=== PATIENT | male | born 1950 | race Caucasian/White ===

== ENCOUNTER 2020-10-12 08:32 | Outpatient (CLI) | payer MEDICARE, OTHER ==
--- NOTE | 2020-10-12 08:53 | RAD ---
Chest 2 views HISTORY: Dyspnea. FINDINGS: No comparison. Cardiac silhouette and pulmonary vasculature are unremarkable. Mediastinum i s midline with calcification and a tortuous aorta. Lungs are well-inflated. Mild widespread reticular prominence, predominantly peripheral. Possibly sup erimposed ill-defined peripheral groundglass opacity projecting over the right upper lobe and left lung base. No pleural fluid or pneumothorax evident. IMPRESSION : In addition to chronic-type findings as hyperinflation and peripheral interstitial thickening/scarrin g, there are possible superimposed groundglass infiltrates. Correlate for an acute process such as viral pneumonitis.
== END 2020-10-12 08:33 | disposition home or self-care (01) ==
LOC: BICRAD 08:32
PROVIDERS: ATTEND Internal Medicine Critical Care Medicine
DX: R06.00 Dyspnea, unspecified (principal); R91.8 Other nonspecific abnormal finding of lung field
CPT/HCPCS: 71046

== ENCOUNTER 2020-10-13 07:37 | Outpatient (CLI) | payer MEDICARE, OTHER ==
[2020-10-13] MEDS ORDERED: Lidocaine 1% PF 10 ML AMP ONE (08:00)
[2020-10-13] MEDS ORDERED: Iopamidol 300 61% 50 ML VIAL FS ONE (08:00)
[2020-10-13] MEDS ORDERED: EPINEPHrine 1 MG/ML AMP ONE (08:00)
--- NOTE | 2020-10-13 09:46 | CT ---
EXAM: CT Upper Ext Lt W Con DATE: 10/13/2020 9:10 AM INDICATION: History of shoulder trauma and acromial fracture with acute left shoulder pain COMPARISON: Left shoulder arthrogram supervisor landscape radiograph dated October 13, 2020 FINDING: There is an obliquely oriented ununited fracture involving the base of the left acromial pr ocess. There is post procedural change of a prior distal clavicle excision. There is a small focus of heterotopic ossification overlying the distal clavicle measuring 1.2 cm. 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 No full-thickness rotator cuff tear is demonstrated. The biceps anchor complex appears intact. The biceps tendon is intact. There is a linear, vertically oriented po sterior rim fracture of the glenoid. There is suspicion for a partial-thickness tear involving the posterior superior glenoid labrum on image 27 of series 3. No full-thickness defect is evident involv ing the glenohumeral joint. There is peripheral interstitial opacities seen within both lungs with a few scattered areas of bronchiectasis involving the left upper lobe. No enlarged lymph nodes are ev ident. IMPRESSION: 1. Obliquely oriented ununited fracture involving the base of the left acromial process. 2. Incompletely healed vertically oriented posterior rim fracture of the glenoid. 3. Findings suspicious for partial thickness tear involving the posterior superior glenoid labrum. 4. No definite full-thickness rotator cuff tear demonstrated. 5. Postprocedural change of a prior distal clavicle excision with small focus of heterotopic ossifica tion seen slightly cephalad to the distal clavicle. Moderate left sternoclavicular osteoarthrosis. 6. Peripheral inter and intralobular septal thickening with scattered areas of bronchiectasis involvi ng the anterior left upper lobe can be seen with interstitial lung disease. Recommend correlation patient's clinical history.
--- NOTE | 2020-10-13 09:51 | RAD ---
PROCEDURE: Fluoroscopic left shoulder arthrogram INDICATION: Left shoulder pain COMPARISON: None TECHNIQUE: Informed consent was obtained. Preprocedure product safety coordinator images were obtained of the left shoulde r. The patient was placed supine on the fluoroscopic table. A timeout was performed. Site overlying the left shoulder was prepped and draped in the usual sterile fashion. Buffered 1% lidocaine was admi nistered into the overlying subcutaneous tissues. Under fluoroscopic guidance, a 22-gauge spinal needle was guided down into the left glenohumeral joint. Confirmation of needle localization was conf irmed by injecting 1 cc of the buffered 1% lidocaine. Following this 8 cc of the dilute Isovue solution CT Mix: 30 mL total volume consisting of 20 mL normal saline, 5 mL Isovue 300, 5 mL 1% Lido vinita, 0.1 mL Epi 1 mg/ml) was injected. Contrast was visualized within the left glenohumeral joint with fluoroscopy. The needle was removed. The injection site was then cleansed and bandage. The patie nt tolerated the injection without difficulty. Fluoroscopic time: 0.8minutes Fluoroscopic dose: 78.7mcg/sq m FINDINGS: There is an ununited fracture involving the acromial process. There is postsurgical change of a left distal clavicle excision. Visualized left lung is clear. IMPRESSION: Successful left shoulder arthrogram. The patient is to have a follow-up CTarthrogram of t he leftshoulder. Please see this report for further details.
== END 2020-10-13 07:38 | disposition home or self-care (01) ==
LOC: RAD 07:37
PROVIDERS: ATTEND Orthopaedic Surgery
DX: M25.512 Pain in left shoulder (principal); S42.122D Displaced fracture of acromial process, left shoulder, subsequent encounter for fracture with routine healing; M19.012 Primary osteoarthritis, left shoulder; J47.9 Bronchiectasis, uncomplicated; J84.9 Interstitial pulmonary disease, unspecified; Z98.890 Other specified postprocedural states
CPT/HCPCS: 23350; J0171; J2001; Q9967

== ENCOUNTER 2022-05-22 15:02 | Inpatient (IN) | payer MEDICARE, OTHER ==
[2022-05-22] MEDS ORDERED: Lidocaine 1% PF 5 ML VIAL ONE (16:00)
[2022-05-22] MEDS ORDERED: Midazolam HCl 2 mg/2 ml Vial ONE (16:13)
[2022-05-22] MEDS ORDERED: fentaNYL Citrate/PF 100 MCG/2 ML SYRINGE ONE (16:13)
[2022-05-22] MEDS ORDERED: Ketamine 50 MG/ML (10ML VIAL) ONE (16:13)
[2022-05-22] MEDS ORDERED: Bupivacaine/Epinephrine 0.25% 30 ML VIAL ONE (16:21)
[2022-05-22] MEDS ORDERED: PROPOFOL 200 MG/20 ML VIAL ONE (16:43)
[2022-05-22] MEDS ORDERED: Ondansetron ODT 4 MG TAB PO PRN (17:01)
[2022-05-22] MEDS ORDERED: HYDROcodone/Acetaminophen 5/325 mg Tablet PO PRN ×2 (17:01)
[2022-05-22] MEDS ORDERED: Morphine 2 MG/ML VIAL SLOW IVP PRN (17:03)
[2022-05-22] MEDS ORDERED: Ondansetron HCl/PF 4 MG/2 ML Vial IVP PRN (17:10)
[2022-05-22] MEDS ORDERED: Meperidine HCl/PF 25 MG/ML VIAL SLOW IVP PRN (17:10)
[2022-05-22] MEDS ORDERED: Promethazine HCl 25 MG/ML VIAL IM PRN (17:10)
[2022-05-22] MEDS ORDERED: Promethazine HCl 25 MG/ML VIAL IVPB PRN (17:10)
[2022-05-22] MEDS ORDERED: HYDROmorphone 2 MG/ML VIAL SLOW IVP PRN (17:10)
[2022-05-22] MEDS ORDERED: Fentanyl 100 MCG/2 ML VIAL SLOW IVP PRN ×2 (17:33)
[2022-05-22] MEDS: Mometasone 200 MCG/Formoterol 5 MCG 120 PUFF INHALER INH SCH (19:39)
[2022-05-22] MEDS ORDERED: Melatonin 3 MG TAB PO SCH (23:15)
[2022-05-23 04:38] LABS: #Eosinphils 0.2 thou/uL (0.0-0.7); #Lymphocytes 1.3 thou/uL (1.20-3.40); #Monocytes 1.3 thou/uL (0.11-0.59); #Neutrophils 6.5 thou/uL (1.40-6.50); %Basophils 0.4 % (0.0-1.0); %Eosinophils 2.1 % (0.0-10.0); %Lymphocytes 13.5 % (21.0-51.0); %Monocytes 13.6 % (0.0-10.0); %Neutrophils 70.3 % (42.0-75.0); Hemoglobin 11.3 g/dL (14.0-18.0); Mean Corpuscular HGB CONC 33.2 g/dL (32.0-36.0); Mean Corpuscular Hemoglobin 31.7 pg (27.0-31.0); Mean Corpuscular Volume 95.5 fL (78.0-98.0); Mean Platelet Volume 5.8 fL (7.4-10.4); Platelet Count 263 thou/uL (130-400); RBC Distribution Width 11.4 % (11.5-14.5); Red Blood Cell (RBC) Count 3.55 mill/uL (4.70-6.10); White Blood Cell (WBC) Count 9.3 thou/uL (4.8-10.8)
[2022-05-23 04:55] LABS: Anion Gap 15 mmol/L (10-20); BUN (Urea Nitrogen) 16 mg/dL (8.4-25.7); Calc. Creatinine Clearance 118 mL/min (70-130); Carbon Dioxide 22 mmol/L (23-31); Chloride 104 mmol/L (98-107); Estimated GFR 94; Glucose 102 mg/dL (83-110); Potassium 4.4 mmol/L (3.5-5.1); Sodium 137 mmol/L (136-145)
[2022-05-23] MEDS: Mometasone 200 MCG/Formoterol 5 MCG 120 PUFF INHALER INH SCH ×2 (07:33→18:28)
[2022-05-23] MEDS: Amlodipine 5 MG TAB PO SCH (08:58)
[2022-05-23] MEDS ORDERED: Enoxaparin Sodium 40 MG/0.4 ML SYRINGE SC SCH (09:00)
[2022-05-23] MEDS ORDERED: Sodium Bicarbonate 2.5 MEQ/5 ML VIAL ONE (13:00)
[2022-05-23] MEDS: cefTRIAXone\\ROCEPHIN 2 GM in Sodium Chloride 0.9% 100 ML IVPB SCH (14:56)
[2022-05-23] MEDS ORDERED: Mometasone 100 MCG/Formoterol 5 MCG 120 PUFF INHALER INH SCH (18:30)
[2022-05-23] MEDS: Melatonin 3 MG TAB PO SCH (21:59)
[2022-05-24] MEDS: Mometasone 200 MCG/Formoterol 5 MCG 120 PUFF INHALER INH SCH ×2 (07:23→18:57)
[2022-05-24] MEDS: Amlodipine 5 MG TAB PO SCH (09:20)
[2022-05-24] MEDS: Atorvastatin Calcium 20 MG TAB PO SCH (09:20)
[2022-05-24] MEDS: Allopurinol 100 MG TAB PO SCH (09:20)
[2022-05-24] MEDS: predniSONE 20 MG TAB PO SCH (09:20)
[2022-05-24] MEDS: Multivit, Therapeutic 1 TAB PO SCH (09:20)
[2022-05-24] MEDS: Montelukast Sodium 10 mg Tablet PO SCH (09:20)
[2022-05-24] MEDS: cefTRIAXone\\ROCEPHIN 2 GM in Sodium Chloride 0.9% 100 ML IVPB SCH (14:58)
[2022-05-24] MEDS ORDERED: Loratadine 10 MG TAB PO PRN (15:00)
[2022-05-24] MEDS: Melatonin 3 MG TAB PO SCH (21:33)
[2022-05-25] MEDS: Mometasone 200 MCG/Formoterol 5 MCG 120 PUFF INHALER INH SCH ×2 (07:25→18:53)
[2022-05-25] MEDS: Amlodipine 5 MG TAB PO SCH (09:33)
[2022-05-25] MEDS: Allopurinol 100 MG TAB PO SCH (09:34)
[2022-05-25] MEDS: Montelukast Sodium 10 mg Tablet PO SCH (09:34)
[2022-05-25] MEDS: Atorvastatin Calcium 20 MG TAB PO SCH (09:34)
[2022-05-25] MEDS: predniSONE 20 MG TAB PO SCH (09:34)
[2022-05-25] MEDS: Multivit, Therapeutic 1 TAB PO SCH (09:34)
[2022-05-25] MEDS ORDERED: Polyethylene Glycol 3350 17 GM Packet PO SCH (13:30)
[2022-05-25] MEDS: cefTRIAXone\\ROCEPHIN 2 GM in Sodium Chloride 0.9% 100 ML IVPB SCH (14:33)
[2022-05-25] MEDS: Melatonin 3 MG TAB PO SCH (21:01)
[2022-05-26] MEDS: Mometasone 200 MCG/Formoterol 5 MCG 120 PUFF INHALER INH SCH ×2 (07:44→19:12)
[2022-05-26] MEDS ORDERED: Fentanyl 100 MCG/2 ML VIAL ONE (08:28)
[2022-05-26] MEDS ORDERED: Sodium Bicarbonate 2.5 MEQ/5 ML VIAL ONE (08:28)
[2022-05-26] MEDS: Amlodipine 5 MG TAB PO SCH (10:34)
[2022-05-26] MEDS: Atorvastatin Calcium 20 MG TAB PO SCH (10:34)
[2022-05-26] MEDS: predniSONE 20 MG TAB PO SCH (10:34)
[2022-05-26] MEDS: Allopurinol 100 MG TAB PO SCH (10:34)
[2022-05-26] MEDS: Montelukast Sodium 10 mg Tablet PO SCH (10:34)
[2022-05-26] MEDS: Multivit, Therapeutic 1 TAB PO SCH (10:35)
[2022-05-26] MEDS: Polyethylene Glycol 3350 17 GM Packet PO SCH (11:21)
[2022-05-26] MEDS: cefTRIAXone\\ROCEPHIN 2 GM in Sodium Chloride 0.9% 100 ML IVPB SCH (15:56)
[2022-05-26 19:13] LABS: Cytoplasmic (C-ANCA) <1:20 titer (Neg:<1:20); Myeloperoxidase AutoAbs <0.2 units (0.0-0.9); Perinuclear (P-ANCA) <1:20 titer (Neg:<1:20); Proteinase-3 AutoAbs Less than 0.2 units (0.0-0.9)
[2022-05-26] MEDS: Melatonin 3 MG TAB PO SCH (22:22)
[2022-05-27] MEDS: Mometasone 200 MCG/Formoterol 5 MCG 120 PUFF INHALER INH SCH ×2 (07:15→18:18)
[2022-05-27] MEDS: Multivit, Therapeutic 1 TAB PO SCH (09:49)
[2022-05-27] MEDS: Allopurinol 100 MG TAB PO SCH (09:49)
[2022-05-27] MEDS: Amlodipine 5 MG TAB PO SCH (09:49)
[2022-05-27] MEDS: Montelukast Sodium 10 mg Tablet PO SCH (09:49)
[2022-05-27] MEDS: predniSONE 20 MG TAB PO SCH (09:49)
[2022-05-27] MEDS: Atorvastatin Calcium 20 MG TAB PO SCH (09:49)
[2022-05-27] MEDS: Polyethylene Glycol 3350 17 GM Packet PO SCH (09:51)
[2022-05-27 10:14] LABS: Fungus Stain Final report (.)
[2022-05-27] MEDS: cefTRIAXone\\ROCEPHIN 2 GM in Sodium Chloride 0.9% 100 ML IVPB SCH (14:39)
[2022-05-27] MEDS: Melatonin 3 MG TAB PO SCH (21:43)
[2022-05-28] MEDS: Mometasone 200 MCG/Formoterol 5 MCG 120 PUFF INHALER INH SCH ×2 (06:38→18:58)
[2022-05-28] MEDS: predniSONE 20 MG TAB PO SCH (08:43)
[2022-05-28] MEDS: Atorvastatin Calcium 20 MG TAB PO SCH (08:44)
[2022-05-28] MEDS: Allopurinol 100 MG TAB PO SCH (08:44)
[2022-05-28] MEDS: Montelukast Sodium 10 mg Tablet PO SCH (08:45)
[2022-05-28] MEDS: Multivit, Therapeutic 1 TAB PO SCH (08:46)
[2022-05-28] MEDS: Amlodipine 5 MG TAB PO SCH (08:46)
[2022-05-28] MEDS: Polyethylene Glycol 3350 17 GM Packet PO SCH (08:47)
[2022-05-28] MEDS: Acetaminophen 325 MG TAB PO PRN (08:49)
[2022-05-28] MEDS: cefTRIAXone\\ROCEPHIN 2 GM in Sodium Chloride 0.9% 100 ML IVPB SCH (15:41)
[2022-05-28] MEDS: Melatonin 3 MG TAB PO SCH (21:23)
[2022-05-29] MEDS: Mometasone 200 MCG/Formoterol 5 MCG 120 PUFF INHALER INH SCH ×2 (06:54→18:53)
[2022-05-29] MEDS: Multivit, Therapeutic 1 TAB PO SCH (09:10)
[2022-05-29] MEDS: Allopurinol 100 MG TAB PO SCH (09:11)
[2022-05-29] MEDS: Atorvastatin Calcium 20 MG TAB PO SCH (09:11)
[2022-05-29] MEDS: Montelukast Sodium 10 mg Tablet PO SCH (09:12)
[2022-05-29] MEDS: predniSONE 20 MG TAB PO SCH (09:12)
[2022-05-29] MEDS: Polyethylene Glycol 3350 17 GM Packet PO SCH (09:13)
[2022-05-29] MEDS: Amlodipine 5 MG TAB PO SCH (09:13)
[2022-05-29] MEDS: cefTRIAXone\\ROCEPHIN 2 GM in Sodium Chloride 0.9% 100 ML IVPB SCH (15:10)
[2022-05-29] MEDS: Melatonin 3 MG TAB PO SCH ×2 (20:11→21:10)
[2022-05-30] MEDS: Mometasone 200 MCG/Formoterol 5 MCG 120 PUFF INHALER INH SCH ×2 (07:03→18:36)
[2022-05-30] MEDS: predniSONE 20 MG TAB PO SCH (08:30)
[2022-05-30] MEDS: Allopurinol 100 MG TAB PO SCH (08:30)
[2022-05-30] MEDS: Montelukast Sodium 10 mg Tablet PO SCH (08:30)
[2022-05-30] MEDS: Amlodipine 5 MG TAB PO SCH (08:31)
[2022-05-30] MEDS: Multivit, Therapeutic 1 TAB PO SCH (08:31)
[2022-05-30] MEDS: Atorvastatin Calcium 20 MG TAB PO SCH (08:31)
[2022-05-30] MEDS: Polyethylene Glycol 3350 17 GM Packet PO SCH (08:32)
[2022-05-30] MEDS ORDERED: Midazolam HCl 2 mg/2 ml Vial ONE (10:37)
[2022-05-30] MEDS ORDERED: Norepinephrine 4 MG/4 ML VIAL ONE (10:38)
[2022-05-30] MEDS ORDERED: SUGAMMADEX SODIUM 200 MG/2 ML VIAL ONE (10:38)
[2022-05-30] MEDS ORDERED: niCARdipine 25 MG/10 ML VIAL ONE (10:38)
[2022-05-30] MEDS ORDERED: Rocuronium Bromide 50 MG/5 ML VIAL ONE (10:38)
[2022-05-30] MEDS ORDERED: fentaNYL Citrate/PF 100 MCG/2 ML SYRINGE ONE (10:38)
[2022-05-30] MEDS ORDERED: Ondansetron PF 4 MG/2 ML Vial ONE (11:19)
[2022-05-30] MEDS ORDERED: Lidocaine 1% MPF 2 ML VIAL ONE (11:19)
[2022-05-30] MEDS ORDERED: PROPOFOL 200 MG/20 ML VIAL ONE (11:19)
[2022-05-30] MEDS ORDERED: Rocuronium Bromide 10 MG/ML (10ML VIAL) ONE (11:19)
[2022-05-30] MEDS ORDERED: Dexamethasone 20 MG/5 ML VIAL ONE (11:19)
[2022-05-30] MEDS ORDERED: Dexamethasone 4 mg/ml Vial ONE (13:14)
[2022-05-30] MEDS ORDERED: EPINEPHrine 1 MG/ML AMP ONE (13:14)
[2022-05-30] MEDS ORDERED: Bupivacaine PF 0.5% 30 ML VIAL ONE (13:14)
[2022-05-30] MEDS ORDERED: HYDROmorphone 2 MG/ML VIAL ONE (14:03)
[2022-05-30] MEDS ORDERED: HYDROmorphone 0.5 MG/0.5 ML SYRINGE ONE (14:04)
[2022-05-30] MEDS ORDERED: Ondansetron HCl/PF 4 MG/2 ML Vial IVP PRN (14:07)
[2022-05-30] MEDS ORDERED: Zolpidem Tartrate 5 MG TAB PO PRN (14:07)
[2022-05-30] MEDS ORDERED: Ondansetron PF 4 MG/2 ML Vial IVP PRN (14:07)
[2022-05-30] MEDS ORDERED: Promethazine HCl 25 MG/ML VIAL IVPB PRN (14:07)
[2022-05-30] MEDS ORDERED: Naloxone HCl 0.4 mg/ml Vial IV PRN (14:07)
[2022-05-30] MEDS ORDERED: Ketorolac Tromethamine 30 MG/ML VIAL IVP PRN (14:07)
[2022-05-30] MEDS ORDERED: Promethazine HCl 25 MG/ML VIAL IM PRN ×2 (14:07)
[2022-05-30] MEDS ORDERED: diphenhydrAMINE 50 MG/ML VIAL IM PRN (14:07)
[2022-05-30] MEDS ORDERED: HYDROmorphone 2 MG/ML VIAL SLOW IVP PRN (14:07)
[2022-05-30] MEDS ORDERED: diphenhydrAMINE 50 MG/ML VIAL IVP PRN (14:07)
[2022-05-30] MEDS ORDERED: diphenhydrAMINE 25 MG CAP PO PRN (14:07)
[2022-05-30] MEDS ORDERED: HYDROmorphone 10 mg/100 ml CADD IVPB PRN (14:07)
[2022-05-30] MEDS ORDERED: Communication Order-Pharmacy FS SCH (14:15)
[2022-05-30] MEDS ORDERED: Fentanyl 100 MCG/2 ML VIAL ONE (14:16)
[2022-05-30] MEDS ORDERED: cefTRIAXone\\ROCEPHIN 1 GM VIAL ONE (14:23)
[2022-05-30] MEDS ORDERED: cefTRIAXone\\ROCEPHIN 2 GM VIAL ONE (14:27)
[2022-05-30] MEDS: cefTRIAXone\\ROCEPHIN 2 GM in Sodium Chloride 0.9% 100 ML IVPB SCH (14:34)
[2022-05-30] MEDS: Melatonin 3 MG TAB PO SCH (21:35)
[2022-05-31 04:32] LABS: #Lymphocytes 0.7 thou/uL (1.20-3.40); #Monocytes 1.3 thou/uL (0.11-0.59); #Neutrophils 16.5 thou/uL (1.40-6.50); %Basophils 0.2 % (0.0-1.0); %Eosinophils 0.2 % (0.0-10.0); %Lymphocytes 3.8 % (21.0-51.0); %Monocytes 6.9 % (0.0-10.0); %Neutrophils 88.9 % (42.0-75.0); Mean Corpuscular HGB CONC 34.3 g/dL (32.0-36.0); Mean Corpuscular Hemoglobin 32.5 pg (27.0-31.0); Mean Corpuscular Volume 94.8 fL (78.0-98.0); Mean Platelet Volume 5.8 fL (7.4-10.4); Platelet Count 358 thou/uL (130-400); RBC Distribution Width 11.5 % (11.5-14.5); White Blood Cell (WBC) Count 18.6 thou/uL (4.8-10.8)
[2022-05-31 04:43] LABS: Phosphorus 4.2 mg/dL (2.3-4.7)
[2022-05-31 06:45] LABS: ALT (SGPT) 38 U/L (8-55); AST (SGOT) 38 U/L (5-34); Albumin 3.7 g/dL (3.4-4.8); Alkaline Phosphatase 81 U/L (40-110); Anion Gap 20 mmol/L (10-20); BUN (Urea Nitrogen) 19 mg/dL (8.4-25.7); Bilirubin, Total 0.5 mg/dL (0.2-1.2); Calc. Creatinine Clearance 116 mL/min (70-130); Carbon Dioxide 21 mmol/L (23-31); Chloride 100 mmol/L (98-107); Estimated GFR 93; Globulin 3.8 g/dL (2.4-3.5); Glucose 155 mg/dL (83-110); Potassium 4.4 mmol/L (3.5-5.1); Protein, Total 7.5 g/dL (5.8-8.1); Sodium 137 mmol/L (136-145)
[2022-05-31] MEDS: Mometasone 200 MCG/Formoterol 5 MCG 120 PUFF INHALER INH SCH ×2 (07:16→18:43)
[2022-05-31] MEDS: predniSONE 20 MG TAB PO SCH (08:36)
[2022-05-31] MEDS: Multivit, Therapeutic 1 TAB PO SCH (08:37)
[2022-05-31] MEDS: Atorvastatin Calcium 20 MG TAB PO SCH (08:37)
[2022-05-31] MEDS: Allopurinol 100 MG TAB PO SCH ×3 (08:37→20:40)
[2022-05-31] MEDS: Amlodipine 5 MG TAB PO SCH (08:37)
[2022-05-31] MEDS: Montelukast Sodium 10 mg Tablet PO SCH ×3 (08:37→20:40)
[2022-05-31] MEDS: Polyethylene Glycol 3350 17 GM Packet PO SCH (08:38)
[2022-05-31] MEDS: Senokot S 8.6-50 MG TAB PO SCH ×2 (09:48→20:40)
[2022-05-31] MEDS: Acetaminophen 325 MG TAB PO PRN (20:39)
[2022-05-31] MEDS: Melatonin 3 MG TAB PO SCH (20:40)
[2022-06-01 04:00] LABS: ALT (SGPT) 37 U/L (8-55); AST (SGOT) 32 U/L (5-34); Albumin 3.5 g/dL (3.4-4.8); Alkaline Phosphatase 80 U/L (40-110); Anion Gap 16 mmol/L (10-20); BUN (Urea Nitrogen) 23 mg/dL (8.4-25.7); Bilirubin, Total 0.5 mg/dL (0.2-1.2); Calc. Creatinine Clearance 104 mL/min (70-130); Calcium 8.9 mg/dL (7.8-10.44); Carbon Dioxide 23 mmol/L (23-31); Chloride 99 mmol/L (98-107); Estimated GFR 90; Globulin 3.6 g/dL (2.4-3.5); Glucose 143 mg/dL (83-110); Potassium 4.4 mmol/L (3.5-5.1); Protein, Total 7.1 g/dL (5.8-8.1); Sodium 134 mmol/L (136-145)
[2022-06-01 05:02] LABS: Band 4 % (5-11); Hemoglobin 12.4 g/dL (14.0-18.0); Lymphocytes 5 % (21-51); MDiff Complete? YES; Mean Corpuscular Hemoglobin 31.9 pg (27.0-31.0); Mean Corpuscular Volume 93.9 fL (78.0-98.0); Mean Platelet Volume 5.9 fL (7.4-10.4); Monocytes 7 % (0-10); Neutrophil 84 % (42-75); Platelet Count 395 thou/uL (130-400); RBC Distribution Width 11.7 % (11.5-14.5); White Blood Cell (WBC) Count 23.8 thou/uL (4.8-10.8)
[2022-06-01] MEDS: Mometasone 200 MCG/Formoterol 5 MCG 120 PUFF INHALER INH SCH ×2 (07:41→18:37)
[2022-06-01] MEDS: Atorvastatin Calcium 20 MG TAB PO SCH (08:22)
[2022-06-01] MEDS: Multivit, Therapeutic 1 TAB PO SCH (08:22)
[2022-06-01] MEDS: Amlodipine 5 MG TAB PO SCH (08:22)
[2022-06-01] MEDS: predniSONE 20 MG TAB PO SCH (08:22)
[2022-06-01] MEDS: Polyethylene Glycol 3350 17 GM Packet PO SCH (08:25)
[2022-06-01] MEDS: Senokot S 8.6-50 MG TAB PO SCH ×2 (08:25→20:01)
[2022-06-01] MEDS: Melatonin 3 MG TAB PO SCH (20:01)
[2022-06-01] MEDS: Allopurinol 100 MG TAB PO SCH (20:01)
[2022-06-01] MEDS: Montelukast Sodium 10 mg Tablet PO SCH (20:02)
[2022-06-02 03:50] LABS: #Eosinphils 0.1 thou/uL (0.0-0.7); #Lymphocytes 1.1 thou/uL (1.20-3.40); #Monocytes 2.2 thou/uL (0.11-0.59); #Neutrophils 17.1 thou/uL (1.40-6.50); %Basophils 0.1 % (0.0-1.0); %Eosinophils 0.6 % (0.0-10.0); %Lymphocytes 5.4 % (21.0-51.0); %Monocytes 10.6 % (0.0-10.0); %Neutrophils 83.4 % (42.0-75.0); Hemoglobin 12.6 g/dL (14.0-18.0); Mean Corpuscular HGB CONC 32.8 g/dL (32.0-36.0); Mean Corpuscular Volume 94.5 fL (78.0-98.0); Mean Platelet Volume 5.7 fL (7.4-10.4); Platelet Count 392 thou/uL (130-400); RBC Distribution Width 11.6 % (11.5-14.5); Red Blood Cell (RBC) Count 4.05 mill/uL (4.70-6.10); White Blood Cell (WBC) Count 20.5 thou/uL (4.8-10.8)
[2022-06-02 04:07] LABS: ALT (SGPT) 35 U/L (8-55); AST (SGOT) 26 U/L (5-34); Albumin 3.4 g/dL (3.4-4.8); Alkaline Phosphatase 75 U/L (40-110); Anion Gap 17 mmol/L (10-20); BUN (Urea Nitrogen) 25 mg/dL (8.4-25.7); Bilirubin, Total 0.5 mg/dL (0.2-1.2); Calc. Creatinine Clearance 113 mL/min (70-130); Calcium 8.8 mg/dL (7.8-10.44); Carbon Dioxide 21 mmol/L (23-31); Chloride 97 mmol/L (98-107); Estimated GFR 93; Globulin 3.6 g/dL (2.4-3.5); Glucose 140 mg/dL (83-110); Potassium 4.3 mmol/L (3.5-5.1); Sodium 131 mmol/L (136-145)
[2022-06-02] MEDS ORDERED: Magnesium Citrate 300 ML BOT PO SCH (07:00)
[2022-06-02] MEDS ORDERED: Sodium Chloride 0.9% 1,000 ML IV SCH (07:30)
[2022-06-02] MEDS: Mometasone 200 MCG/Formoterol 5 MCG 120 PUFF INHALER INH SCH ×2 (07:46→18:39)
[2022-06-02] MEDS ORDERED: Chloraseptic Spray 180 ml Bottle PO PRN (10:38)
[2022-06-02] MEDS: Multivit, Therapeutic 1 TAB PO SCH (12:38)
[2022-06-02] MEDS: Amlodipine 5 MG TAB PO SCH (13:18)
[2022-06-02] MEDS: Polyethylene Glycol 3350 17 GM Packet PO SCH (13:19)
[2022-06-02] MEDS: Atorvastatin Calcium 20 MG TAB PO SCH (13:19)
[2022-06-02] MEDS: Senokot S 8.6-50 MG TAB PO SCH ×2 (13:20→20:06)
[2022-06-02] MEDS: predniSONE 20 MG TAB PO SCH (15:16)
[2022-06-02 16:00] LABS: Mean Corpuscular HGB CONC 33.4 g/dL (32.0-36.0); Mean Corpuscular Hemoglobin 31.5 pg (27.0-31.0); Mean Corpuscular Volume 94.4 fL (78.0-98.0); Mean Platelet Volume 5.7 fL (7.4-10.4); Platelet Count 398 thou/uL (130-400); RBC Distribution Width 11.5 % (11.5-14.5); Red Blood Cell (RBC) Count 4.14 mill/uL (4.70-6.10)
[2022-06-02 16:11] LABS: INR-International Normal Ratio 1.1; PTT 26.1 sec (22.9-36.1); Prothrombin Time 14.2 sec (12.0-14.7)
[2022-06-02] MEDS: Melatonin 3 MG TAB PO SCH (20:06)
[2022-06-02] MEDS: Pantoprazole 40 MG VIAL IVP SCH (20:06)
[2022-06-02] MEDS: Montelukast Sodium 10 mg Tablet PO SCH (20:06)
[2022-06-02] MEDS: Allopurinol 100 MG TAB PO SCH (20:06)
[2022-06-03 04:02] LABS: #Eosinphils 0.4 thou/uL (0.0-0.7); #Lymphocytes 1.8 thou/uL (1.20-3.40); #Monocytes 2.2 thou/uL (0.11-0.59); #Neutrophils 14.2 thou/uL (1.40-6.50); %Basophils 0.1 % (0.0-1.0); %Lymphocytes 9.9 % (21.0-51.0); %Monocytes 11.6 % (0.0-10.0); %Neutrophils 76.4 % (42.0-75.0); Hemoglobin 12.6 g/dL (14.0-18.0); Mean Corpuscular HGB CONC 34.5 g/dL (32.0-36.0); Mean Corpuscular Hemoglobin 32.6 pg (27.0-31.0); Mean Corpuscular Volume 94.6 fL (78.0-98.0); Mean Platelet Volume 5.7 fL (7.4-10.4); Platelet Count 359 thou/uL (130-400); RBC Distribution Width 11.5 % (11.5-14.5); Red Blood Cell (RBC) Count 3.86 mill/uL (4.70-6.10); White Blood Cell (WBC) Count 18.6 thou/uL (4.8-10.8)
[2022-06-03 04:14] LABS: ALT (SGPT) 31 U/L (8-55); AST (SGOT) 29 U/L (5-34); Albumin 3.2 g/dL (3.4-4.8); Alkaline Phosphatase 72 U/L (40-110); Anion Gap 16 mmol/L (10-20); BUN (Urea Nitrogen) 25 mg/dL (8.4-25.7); Bilirubin, Total 0.7 mg/dL (0.2-1.2); Calc. Creatinine Clearance 113 mL/min (70-130); Calcium 8.5 mg/dL (7.8-10.44); Carbon Dioxide 26 mmol/L (23-31); Chloride 100 mmol/L (98-107); Estimated GFR 93; Globulin 3.2 g/dL (2.4-3.5); Glucose 121 mg/dL (83-110); Potassium 4.1 mmol/L (3.5-5.1); Protein, Total 6.4 g/dL (5.8-8.1); Sodium 138 mmol/L (136-145)
[2022-06-03] MEDS: Polyethylene Glycol 3350 17 GM Packet PO SCH (08:47)
[2022-06-03] MEDS: predniSONE 20 MG TAB PO SCH (08:48)
[2022-06-03] MEDS: Amlodipine 5 MG TAB PO SCH (08:48)
[2022-06-03] MEDS: Senokot S 8.6-50 MG TAB PO SCH ×2 (08:49→21:25)
[2022-06-03] MEDS: Atorvastatin Calcium 20 MG TAB PO SCH (08:49)
[2022-06-03] MEDS: Multivit, Therapeutic 1 TAB PO SCH (08:49)
[2022-06-03] MEDS: Pantoprazole 40 MG VIAL IVP SCH (09:03)
[2022-06-03] MEDS: Metoclopramide HCl 10 MG/2 ML VIAL IVP SCH ×2 (12:47→18:00)
[2022-06-03] MEDS: Sodium Chloride 0.9% 1,000 ML IV SCH (18:00)
[2022-06-03] MEDS: Mometasone 200 MCG/Formoterol 5 MCG 120 PUFF INHALER INH SCH ×3 (18:30→18:55)
[2022-06-03] MEDS: Melatonin 3 MG TAB PO SCH (21:26)
[2022-06-03] MEDS: Allopurinol 100 MG TAB PO SCH (21:26)
[2022-06-03] MEDS: Montelukast Sodium 10 mg Tablet PO SCH (21:26)
[2022-06-04] MEDS: Metoclopramide HCl 10 MG/2 ML VIAL IVP SCH ×5 (00:02→21:17)
[2022-06-04] MEDS: Pantoprazole 40 MG VIAL IVP SCH ×3 (00:02→21:17)
[2022-06-04] MEDS: Sodium Chloride 0.9% 1,000 ML IV SCH (04:14)
[2022-06-04 06:56] LABS: #Eosinphils 0.3 thou/uL (0.0-0.7); #Lymphocytes 1.3 thou/uL (1.20-3.40); #Monocytes 1.4 thou/uL (0.11-0.59); #Neutrophils 12.6 thou/uL (1.40-6.50); %Basophils 0.1 % (0.0-1.0); %Eosinophils 1.7 % (0.0-10.0); %Neutrophils 81.2 % (42.0-75.0); Hemoglobin 11.2 g/dL (14.0-18.0); Mean Corpuscular HGB CONC 32.5 g/dL (32.0-36.0); Mean Corpuscular Hemoglobin 31.1 pg (27.0-31.0); Mean Corpuscular Volume 95.7 fL (78.0-98.0); Mean Platelet Volume 5.9 fL (7.4-10.4); Platelet Count 300 thou/uL (130-400); RBC Distribution Width 11.6 % (11.5-14.5); White Blood Cell (WBC) Count 15.6 thou/uL (4.8-10.8)
[2022-06-04 07:18] LABS: Anion Gap 14 mmol/L (10-20); BUN (Urea Nitrogen) 26 mg/dL (8.4-25.7); Calc. Creatinine Clearance 113 mL/min (70-130); Calcium 8.1 mg/dL (7.8-10.44); Carbon Dioxide 22 mmol/L (23-31); Chloride 106 mmol/L (98-107); Estimated GFR 95; Glucose 106 mg/dL (83-110); Magnesium 2.2 mg/dL (1.6-2.6); Potassium 4.2 mmol/L (3.5-5.1); Sodium 138 mmol/L (136-145)
[2022-06-04] MEDS: Polyethylene Glycol 3350 17 GM Packet PO SCH (08:50)
[2022-06-04] MEDS: Amlodipine 5 MG TAB PO SCH (08:50)
[2022-06-04] MEDS: predniSONE 20 MG TAB PO SCH (08:50)
[2022-06-04] MEDS: Atorvastatin Calcium 20 MG TAB PO SCH (08:50)
[2022-06-04] MEDS: Multivit, Therapeutic 1 TAB PO SCH (08:50)
[2022-06-04] MEDS: Senokot S 8.6-50 MG TAB PO SCH ×2 (08:50→21:16)
[2022-06-04] MEDS: Mometasone 200 MCG/Formoterol 5 MCG 120 PUFF INHALER INH SCH ×2 (18:30→18:40)
[2022-06-04] MEDS: Melatonin 3 MG TAB PO SCH (21:16)
[2022-06-04] MEDS: Allopurinol 100 MG TAB PO SCH (21:16)
[2022-06-04] MEDS: Montelukast Sodium 10 mg Tablet PO SCH (21:16)
[2022-06-05 03:59] LABS: #Eosinphils 0.3 thou/uL (0.0-0.7); #Lymphocytes 1.3 thou/uL (1.20-3.40); #Monocytes 1.5 thou/uL (0.11-0.59); %Basophils 0.2 % (0.0-1.0); %Eosinophils 1.7 % (0.0-10.0); %Lymphocytes 7.7 % (21.0-51.0); %Monocytes 8.8 % (0.0-10.0); %Neutrophils 81.7 % (42.0-75.0); Hemoglobin 11.6 g/dL (14.0-18.0); Mean Corpuscular HGB CONC 34.5 g/dL (32.0-36.0); Mean Corpuscular Hemoglobin 32.7 pg (27.0-31.0); Mean Corpuscular Volume 94.9 fL (78.0-98.0); Mean Platelet Volume 5.6 fL (7.4-10.4); Platelet Count 288 thou/uL (130-400); RBC Distribution Width 11.6 % (11.5-14.5); Red Blood Cell (RBC) Count 3.54 mill/uL (4.70-6.10); White Blood Cell (WBC) Count 17.2 thou/uL (4.8-10.8)
[2022-06-05 04:21] LABS: Anion Gap 15 mmol/L (10-20); BUN (Urea Nitrogen) 18 mg/dL (8.4-25.7); Calc. Creatinine Clearance 111 mL/min (70-130); Calcium 8.1 mg/dL (7.8-10.44); Carbon Dioxide 24 mmol/L (23-31); Chloride 101 mmol/L (98-107); Estimated GFR 94; Glucose 110 mg/dL (83-110); Potassium 4.2 mmol/L (3.5-5.1); Sodium 136 mmol/L (136-145)
[2022-06-05] MEDS: Metoclopramide HCl 10 MG/2 ML VIAL IVP SCH (04:47)
[2022-06-05] MEDS: Mometasone 200 MCG/Formoterol 5 MCG 120 PUFF INHALER INH SCH ×2 (06:58→18:39)
[2022-06-05] MEDS: Amlodipine 5 MG TAB PO SCH (09:47)
[2022-06-05] MEDS: Senokot S 8.6-50 MG TAB PO SCH ×2 (09:47→20:43)
[2022-06-05] MEDS: Atorvastatin Calcium 20 MG TAB PO SCH (09:48)
[2022-06-05] MEDS: Multivit, Therapeutic 1 TAB PO SCH (09:48)
[2022-06-05] MEDS: predniSONE 20 MG TAB PO SCH (09:48)
[2022-06-05] MEDS: Potassium Chloride 10 MEQ TAB PO SCH ×2 (09:48→15:47)
[2022-06-05] MEDS: Furosemide 20 MG TAB PO SCH ×2 (09:48→15:47)
[2022-06-05] MEDS: Polyethylene Glycol 3350 17 GM Packet PO SCH (09:52)
[2022-06-05] MEDS: Montelukast Sodium 10 mg Tablet PO SCH (20:43)
[2022-06-05] MEDS: Allopurinol 100 MG TAB PO SCH (20:44)
[2022-06-05] MEDS: Melatonin 3 MG TAB PO SCH (20:44)
[2022-06-06 03:53] LABS: #Basophils 0.1 thou/uL (0.0-0.2); #Eosinphils 0.2 thou/uL (0.0-0.7); #Lymphocytes 1.3 thou/uL (1.20-3.40); #Monocytes 1.4 thou/uL (0.11-0.59); %Basophils 0.3 % (0.0-1.0); %Eosinophils 1.2 % (0.0-10.0); %Lymphocytes 6.8 % (21.0-51.0); %Monocytes 7.3 % (0.0-10.0); %Neutrophils 84.4 % (42.0-75.0); Hemoglobin 11.5 g/dL (14.0-18.0); Mean Corpuscular HGB CONC 34.3 g/dL (32.0-36.0); Mean Corpuscular Hemoglobin 32.7 pg (27.0-31.0); Mean Corpuscular Volume 95.3 fL (78.0-98.0); Mean Platelet Volume 5.7 fL (7.4-10.4); Platelet Count 291 thou/uL (130-400); RBC Distribution Width 11.5 % (11.5-14.5); Red Blood Cell (RBC) Count 3.51 mill/uL (4.70-6.10)
[2022-06-06 04:15] LABS: ALT (SGPT) 36 U/L (8-55); AST (SGOT) 30 U/L (5-34); Alkaline Phosphatase 72 U/L (40-110); Anion Gap 16 mmol/L (10-20); BUN (Urea Nitrogen) 18 mg/dL (8.4-25.7); Bilirubin, Total 0.5 mg/dL (0.2-1.2); Calc. Creatinine Clearance 103 mL/min (70-130); Calcium 8.1 mg/dL (7.8-10.44); Carbon Dioxide 24 mmol/L (23-31); Chloride 99 mmol/L (98-107); Estimated GFR 92; Globulin 2.9 g/dL (2.4-3.5); Glucose 125 mg/dL (83-110); Potassium 4.1 mmol/L (3.5-5.1); Protein, Total 5.9 g/dL (5.8-8.1); Sodium 135 mmol/L (136-145)
[2022-06-06] MEDS: Mometasone 200 MCG/Formoterol 5 MCG 120 PUFF INHALER INH SCH ×2 (08:16→19:31)
[2022-06-06] MEDS: Furosemide 20 MG TAB PO SCH ×2 (08:37→16:32)
[2022-06-06] MEDS: predniSONE 20 MG TAB PO SCH (08:38)
[2022-06-06] MEDS: Multivit, Therapeutic 1 TAB PO SCH (08:38)
[2022-06-06] MEDS: Potassium Chloride 10 MEQ TAB PO SCH ×2 (08:38→16:30)
[2022-06-06] MEDS: Amlodipine 5 MG TAB PO SCH (08:38)
[2022-06-06] MEDS: Polyethylene Glycol 3350 17 GM Packet PO SCH (08:38)
[2022-06-06] MEDS: Atorvastatin Calcium 20 MG TAB PO SCH (08:38)
[2022-06-06] MEDS: Senokot S 8.6-50 MG TAB PO SCH ×2 (08:39→21:41)
[2022-06-06 13:53] VITALS: BMI 30.4
[2022-06-06] MEDS ORDERED: diphenhydrAMINE 50 MG/ML VIAL IM PRN (14:34)
[2022-06-06] MEDS ORDERED: Ondansetron PF 4 MG/2 ML Vial IVP PRN (14:34)
[2022-06-06] MEDS ORDERED: diphenhydrAMINE 50 MG/ML VIAL IVP PRN (14:34)
[2022-06-06] MEDS ORDERED: Naloxone HCl 0.4 mg/ml Vial IV PRN (14:34)
[2022-06-06] MEDS ORDERED: diphenhydrAMINE 25 MG CAP PO PRN (14:34)
[2022-06-06] MEDS ORDERED: Promethazine HCl 25 MG/ML VIAL IM PRN (14:34)
[2022-06-06] MEDS ORDERED: Zolpidem Tartrate 5 MG TAB PO PRN (14:34)
[2022-06-06] MEDS ORDERED: Communication Order-Pharmacy FS SCH (14:45)
[2022-06-06] MEDS: Montelukast Sodium 10 mg Tablet PO SCH (21:40)
[2022-06-06] MEDS: Allopurinol 100 MG TAB PO SCH (21:41)
[2022-06-06] MEDS: Melatonin 3 MG TAB PO SCH (21:41)
[2022-06-06] MEDS: HYDROcodone/Acetaminophen 7.5/325 mg Tablet PO PRN (21:48)
[2022-06-07 05:46] LABS: SARS-CoV-2 NAA Rapid Test Not Detected (NotDetected)
[2022-06-07] MEDS: Mometasone 200 MCG/Formoterol 5 MCG 120 PUFF INHALER INH SCH ×2 (06:47→18:41)
[2022-06-07] MEDS: Senokot S 8.6-50 MG TAB PO SCH ×2 (08:03→20:12)
[2022-06-07] MEDS: Potassium Chloride 10 MEQ TAB PO SCH ×2 (08:03→17:02)
[2022-06-07] MEDS: Polyethylene Glycol 3350 17 GM Packet PO SCH ×2 (08:03→20:12)
[2022-06-07] MEDS: predniSONE 20 MG TAB PO SCH (09:11)
[2022-06-07] MEDS: Amlodipine 5 MG TAB PO SCH (09:11)
[2022-06-07] MEDS: Multivit, Therapeutic 1 TAB PO SCH (09:12)
[2022-06-07] MEDS: Atorvastatin Calcium 20 MG TAB PO SCH (09:12)
[2022-06-07] MEDS: HYDROcodone/Acetaminophen 7.5/325 mg Tablet PO PRN (09:12)
[2022-06-07] MEDS: Furosemide 20 MG TAB PO SCH ×2 (09:12→17:02)
[2022-06-07] MEDS ORDERED: Fentanyl 100 MCG/2 ML VIAL ONE ×2 (09:46→13:59)
[2022-06-07] MEDS ORDERED: Fentanyl 100 MCG/2 ML VIAL SLOW IVP SCH (10:45)
[2022-06-07] MEDS ORDERED: Bupivacaine HCl 0.5%/Epinephrine 1:200,000/PF 30 ml Vial ONE (10:58)
[2022-06-07] MEDS ORDERED: Dexamethasone 4 mg/ml Vial ONE (10:58)
[2022-06-07] MEDS ORDERED: Midazolam HCl 2 mg/2 ml Vial ONE (11:37)
[2022-06-07] MEDS ORDERED: fentaNYL Citrate/PF 100 MCG/2 ML SYRINGE ONE ×2 (11:38→11:58)
[2022-06-07] MEDS ORDERED: CEFAZOLIN 2 GM VIAL ONE (12:00)
[2022-06-07] MEDS ORDERED: Sodium Chloride 0.9% 100 ML ONE (12:00)
[2022-06-07] MEDS ORDERED: PROPOFOL 200 MG/20 ML VIAL ONE (12:05)
[2022-06-07] MEDS ORDERED: Ondansetron PF 4 MG/2 ML Vial ONE (12:05)
[2022-06-07] MEDS ORDERED: Dexamethasone 20 MG/5 ML VIAL ONE (12:05)
[2022-06-07] MEDS ORDERED: Rocuronium Bromide 10 MG/ML (10ML VIAL) ONE (12:05)
[2022-06-07] MEDS ORDERED: Lidocaine 1% MPF 2 ML VIAL ONE (12:05)
[2022-06-07] MEDS ORDERED: HYDROmorphone 10 mg/100 ml CADD IVPB PRN (13:32)
[2022-06-07] MEDS ORDERED: Promethazine HCl 25 MG/ML VIAL IVPB PRN (13:32)
[2022-06-07] MEDS ORDERED: Naloxone HCl 0.4 mg/ml Vial IV PRN (13:32)
[2022-06-07] MEDS ORDERED: Ondansetron PF 4 MG/2 ML Vial IVP PRN (13:32)
[2022-06-07] MEDS ORDERED: diphenhydrAMINE 25 MG CAP PO PRN (13:32)
[2022-06-07] MEDS ORDERED: diphenhydrAMINE 50 MG/ML VIAL IM PRN (13:32)
[2022-06-07] MEDS ORDERED: diphenhydrAMINE 50 MG/ML VIAL IVP PRN (13:32)
[2022-06-07] MEDS ORDERED: Zolpidem Tartrate 5 MG TAB PO PRN (13:32)
[2022-06-07] MEDS ORDERED: Promethazine HCl 25 MG/ML VIAL IM PRN ×2 (13:32)
[2022-06-07] MEDS ORDERED: Ondansetron HCl/PF 4 MG/2 ML Vial IVP PRN (13:32)
[2022-06-07] MEDS ORDERED: Communication Order-Pharmacy FS SCH (13:45)
[2022-06-07] MEDS ORDERED: Polyethylene Glycol 3350 17 GM Packet PO PRN (18:15)
[2022-06-07] MEDS: Allopurinol 100 MG TAB PO SCH (20:12)
[2022-06-07] MEDS: Melatonin 3 MG TAB PO SCH (20:12)
[2022-06-07] MEDS: Montelukast Sodium 10 mg Tablet PO SCH (20:12)
[2022-06-08 03:53] LABS: #Eosinphils 0.1 thou/uL (0.0-0.7); #Lymphocytes 0.7 thou/uL (1.20-3.40); #Monocytes 0.9 thou/uL (0.11-0.59); #Neutrophils 14.5 thou/uL (1.40-6.50); %Basophils 0.1 % (0.0-1.0); %Eosinophils 0.5 % (0.0-10.0); %Lymphocytes 4.4 % (21.0-51.0); %Monocytes 5.7 % (0.0-10.0); %Neutrophils 89.3 % (42.0-75.0); Mean Corpuscular HGB CONC 33.6 g/dL (32.0-36.0); Mean Corpuscular Hemoglobin 32.2 pg (27.0-31.0); Mean Corpuscular Volume 95.9 fL (78.0-98.0); Mean Platelet Volume 5.8 fL (7.4-10.4); Platelet Count 312 thou/uL (130-400); RBC Distribution Width 11.4 % (11.5-14.5); Red Blood Cell (RBC) Count 3.72 mill/uL (4.70-6.10); White Blood Cell (WBC) Count 16.2 thou/uL (4.8-10.8)
[2022-06-08 04:04] LABS: Anion Gap 16 mmol/L (10-20); BUN (Urea Nitrogen) 22 mg/dL (8.4-25.7); Calc. Creatinine Clearance 97 mL/min (70-130); Calcium 8.4 mg/dL (7.8-10.44); Carbon Dioxide 23 mmol/L (23-31); Chloride 96 mmol/L (98-107); Estimated GFR 90; Glucose 170 mg/dL (83-110); Potassium 4.3 mmol/L (3.5-5.1); Sodium 131 mmol/L (136-145)
[2022-06-08] MEDS: Mometasone 200 MCG/Formoterol 5 MCG 120 PUFF INHALER INH SCH ×2 (07:21→19:21)
[2022-06-08] MEDS: Senokot S 8.6-50 MG TAB PO SCH ×2 (07:31→20:30)
[2022-06-08] MEDS: Multivit, Therapeutic 1 TAB PO SCH (07:31)
[2022-06-08] MEDS: Amlodipine 5 MG TAB PO SCH (07:31)
[2022-06-08] MEDS: Potassium Chloride 10 MEQ TAB PO SCH ×2 (07:32→16:46)
[2022-06-08] MEDS: predniSONE 20 MG TAB PO SCH (07:32)
[2022-06-08] MEDS: Furosemide 20 MG TAB PO SCH ×2 (07:32→16:46)
[2022-06-08] MEDS: Polyethylene Glycol 3350 17 GM Packet PO SCH ×2 (07:33→20:30)
[2022-06-08] MEDS: Atorvastatin Calcium 20 MG TAB PO SCH ×2 (07:50→20:30)
[2022-06-08] MEDS: Melatonin 3 MG TAB PO SCH (20:30)
[2022-06-08] MEDS: Montelukast Sodium 10 mg Tablet PO SCH (20:30)
[2022-06-08] MEDS: Allopurinol 100 MG TAB PO SCH (20:30)
[2022-06-09 04:41] LABS: Anion Gap 15 mmol/L (10-20); BUN (Urea Nitrogen) 23 mg/dL (8.4-25.7); Calc. Creatinine Clearance 105 mL/min (70-130); Calcium 8.3 mg/dL (7.8-10.44); Carbon Dioxide 25 mmol/L (23-31); Chloride 96 mmol/L (98-107); Estimated GFR 93; Glucose 123 mg/dL (83-110); Sodium 132 mmol/L (136-145)
[2022-06-09 04:43] LABS: Band 1 % (5-11); Hemoglobin 10.9 g/dL (14.0-18.0); Lymphocytes 7 % (21-51); MDiff Complete? YES; Mean Corpuscular HGB CONC 34.7 g/dL (32.0-36.0); Mean Corpuscular Hemoglobin 32.8 pg (27.0-31.0); Mean Corpuscular Volume 94.6 fL (78.0-98.0); Mean Platelet Volume 5.9 fL (7.4-10.4); Monocytes 10 % (0-10); Neutrophil 82 % (42-75); Platelet Count 296 thou/uL (130-400); RBC Distribution Width 11.5 % (11.5-14.5); Red Blood Cell (RBC) Count 3.33 mill/uL (4.70-6.10); White Blood Cell (WBC) Count 24.4 thou/uL (4.8-10.8)
[2022-06-09] MEDS: Mometasone 200 MCG/Formoterol 5 MCG 120 PUFF INHALER INH SCH ×2 (07:18→18:30)
[2022-06-09] MEDS: Polyethylene Glycol 3350 17 GM Packet PO SCH ×2 (08:58→19:45)
[2022-06-09] MEDS: Senokot S 8.6-50 MG TAB PO SCH ×2 (08:59→19:45)
[2022-06-09] MEDS: Multivit, Therapeutic 1 TAB PO SCH (08:59)
[2022-06-09] MEDS: Potassium Chloride 10 MEQ TAB PO SCH ×2 (08:59→17:11)
[2022-06-09] MEDS: predniSONE 20 MG TAB PO SCH (08:59)
[2022-06-09] MEDS: Amlodipine 5 MG TAB PO SCH (08:59)
[2022-06-09] MEDS: Furosemide 20 MG TAB PO SCH ×2 (08:59→17:11)
[2022-06-09] MEDS: Acetaminophen 500 MG TAB PO SCH (17:14)
[2022-06-09] MEDS ORDERED: Midazolam HCl 2 mg/2 ml Vial IVP SCH (18:00)
[2022-06-09] MEDS ORDERED: Furosemide 40 MG/4 ML VIAL SLOW IVP SCH (18:00)
[2022-06-09] MEDS: Montelukast Sodium 10 mg Tablet PO SCH (19:45)
[2022-06-09] MEDS: Atorvastatin Calcium 20 MG TAB PO SCH (19:45)
[2022-06-09] MEDS: Melatonin 3 MG TAB PO SCH (19:45)
[2022-06-09] MEDS: Allopurinol 100 MG TAB PO SCH (19:45)
[2022-06-10] MEDS: Acetaminophen 500 MG TAB PO SCH ×4 (00:45→17:25)
[2022-06-10 04:24] LABS: #Eosinphils 0.2 thou/uL (0.0-0.7); #Lymphocytes 1.8 thou/uL (1.20-3.40); #Monocytes 1.6 thou/uL (0.11-0.59); #Neutrophils 14.6 thou/uL (1.40-6.50); %Eosinophils 1.2 % (0.0-10.0); %Monocytes 8.9 % (0.0-10.0); %Neutrophils 79.9 % (42.0-75.0); Hemoglobin 11.5 g/dL (14.0-18.0); Mean Corpuscular HGB CONC 33.8 g/dL (32.0-36.0); Mean Corpuscular Hemoglobin 32.2 pg (27.0-31.0); Mean Corpuscular Volume 95.3 fL (78.0-98.0); Mean Platelet Volume 5.9 fL (7.4-10.4); Platelet Count 285 thou/uL (130-400); RBC Distribution Width 11.5 % (11.5-14.5); Red Blood Cell (RBC) Count 3.55 mill/uL (4.70-6.10); White Blood Cell (WBC) Count 18.3 thou/uL (4.8-10.8)
[2022-06-10 04:34] LABS: Anion Gap 15 mmol/L (10-20); BUN (Urea Nitrogen) 22 mg/dL (8.4-25.7); Calc. Creatinine Clearance 107 mL/min (70-130); Calcium 8.3 mg/dL (7.8-10.44); Carbon Dioxide 23 mmol/L (23-31); Chloride 97 mmol/L (98-107); Estimated GFR 94; Glucose 103 mg/dL (83-110); Potassium 4.5 mmol/L (3.5-5.1); Sodium 130 mmol/L (136-145)
[2022-06-10] MEDS: Mometasone 200 MCG/Formoterol 5 MCG 120 PUFF INHALER INH SCH ×2 (06:52→18:32)
[2022-06-10] MEDS: Potassium Chloride 10 MEQ TAB PO SCH ×2 (10:08→17:25)
[2022-06-10] MEDS: Senokot S 8.6-50 MG TAB PO SCH ×2 (10:09→20:20)
[2022-06-10] MEDS: predniSONE 20 MG TAB PO SCH (10:09)
[2022-06-10] MEDS: Amlodipine 5 MG TAB PO SCH (10:09)
[2022-06-10] MEDS: Multivit, Therapeutic 1 TAB PO SCH (10:09)
[2022-06-10] MEDS: Furosemide 20 MG TAB PO SCH ×2 (10:11→13:13)
[2022-06-10] MEDS: Polyethylene Glycol 3350 17 GM Packet PO SCH ×2 (10:12→20:20)
[2022-06-10] MEDS: Atorvastatin Calcium 20 MG TAB PO SCH (20:20)
[2022-06-10] MEDS: Montelukast Sodium 10 mg Tablet PO SCH (20:20)
[2022-06-10] MEDS: Melatonin 3 MG TAB PO SCH (20:20)
[2022-06-10] MEDS: Allopurinol 100 MG TAB PO SCH (20:20)
[2022-06-11] MEDS: Acetaminophen 500 MG TAB PO SCH ×5 (00:28→23:51)
[2022-06-11 04:06] LABS: #Eosinphils 0.3 thou/uL (0.0-0.7); #Lymphocytes 1.9 thou/uL (1.20-3.40); #Monocytes 1.5 thou/uL (0.11-0.59); #Neutrophils 14.4 thou/uL (1.40-6.50); %Basophils 0.2 % (0.0-1.0); %Eosinophils 1.9 % (0.0-10.0); %Lymphocytes 10.4 % (21.0-51.0); %Monocytes 8.4 % (0.0-10.0); %Neutrophils 79.2 % (42.0-75.0); Mean Corpuscular HGB CONC 33.8 g/dL (32.0-36.0); Mean Corpuscular Hemoglobin 32.3 pg (27.0-31.0); Mean Corpuscular Volume 95.6 fL (78.0-98.0); Mean Platelet Volume 5.7 fL (7.4-10.4); Platelet Count 297 thou/uL (130-400); RBC Distribution Width 11.6 % (11.5-14.5); Red Blood Cell (RBC) Count 3.71 mill/uL (4.70-6.10); White Blood Cell (WBC) Count 18.2 thou/uL (4.8-10.8)
[2022-06-11 04:24] LABS: Anion Gap 14 mmol/L (10-20); BUN (Urea Nitrogen) 19 mg/dL (8.4-25.7); Calc. Creatinine Clearance 105 mL/min (70-130); Calcium 8.3 mg/dL (7.8-10.44); Carbon Dioxide 29 mmol/L (23-31); Chloride 95 mmol/L (98-107); Estimated GFR 93; Glucose 106 mg/dL (83-110); Potassium 3.5 mmol/L (3.5-5.1); Sodium 134 mmol/L (136-145)
[2022-06-11] MEDS: Mometasone 200 MCG/Formoterol 5 MCG 120 PUFF INHALER INH SCH ×2 (06:50→18:35)
[2022-06-11] MEDS: Polyethylene Glycol 3350 17 GM Packet PO SCH ×2 (10:02→20:47)
[2022-06-11] MEDS: Multivit, Therapeutic 1 TAB PO SCH (10:03)
[2022-06-11] MEDS: predniSONE 20 MG TAB PO SCH (10:04)
[2022-06-11] MEDS: Furosemide 20 MG TAB PO SCH ×2 (10:04→12:59)
[2022-06-11] MEDS: Amlodipine 5 MG TAB PO SCH (10:05)
[2022-06-11] MEDS: Senokot S 8.6-50 MG TAB PO SCH ×2 (10:05→20:47)
[2022-06-11] MEDS: Potassium Chloride 10 MEQ TAB PO SCH ×2 (10:06→17:25)
[2022-06-11] MEDS: Montelukast Sodium 10 mg Tablet PO SCH (20:47)
[2022-06-11] MEDS: Atorvastatin Calcium 20 MG TAB PO SCH (20:47)
[2022-06-11] MEDS: Melatonin 3 MG TAB PO SCH (20:47)
[2022-06-11] MEDS: Allopurinol 100 MG TAB PO SCH (20:47)
[2022-06-12 04:14] LABS: #Eosinphils 0.3 thou/uL (0.0-0.7); #Lymphocytes 1.7 thou/uL (1.20-3.40); #Monocytes 1.4 thou/uL (0.11-0.59); %Lymphocytes 9.6 % (21.0-51.0); %Neutrophils 80.4 % (42.0-75.0); Hemoglobin 11.9 g/dL (14.0-18.0); Mean Corpuscular HGB CONC 33.9 g/dL (32.0-36.0); Mean Corpuscular Hemoglobin 32.3 pg (27.0-31.0); Mean Corpuscular Volume 95.2 fL (78.0-98.0); Mean Platelet Volume 5.9 fL (7.4-10.4); Platelet Count 306 thou/uL (130-400); RBC Distribution Width 11.7 % (11.5-14.5); Red Blood Cell (RBC) Count 3.69 mill/uL (4.70-6.10); White Blood Cell (WBC) Count 17.4 thou/uL (4.8-10.8)
[2022-06-12 04:46] LABS: Anion Gap 15 mmol/L (10-20); BUN (Urea Nitrogen) 21 mg/dL (8.4-25.7); Calc. Creatinine Clearance 97 mL/min (70-130); Calcium 8.5 mg/dL (7.8-10.44); Carbon Dioxide 29 mmol/L (23-31); Chloride 94 mmol/L (98-107); Estimated GFR 92; Glucose 123 mg/dL (83-110); Potassium 3.8 mmol/L (3.5-5.1); Sodium 134 mmol/L (136-145)
[2022-06-12] MEDS: Acetaminophen 500 MG TAB PO SCH ×3 (06:36→20:16)
[2022-06-12] MEDS: Mometasone 200 MCG/Formoterol 5 MCG 120 PUFF INHALER INH SCH ×2 (07:06→18:28)
[2022-06-12] MEDS: Furosemide 20 MG TAB PO SCH ×2 (08:35→13:03)
[2022-06-12] MEDS: Amlodipine 5 MG TAB PO SCH (08:35)
[2022-06-12] MEDS: predniSONE 20 MG TAB PO SCH (08:35)
[2022-06-12] MEDS: Potassium Chloride 10 MEQ TAB PO SCH ×2 (08:35→20:16)
[2022-06-12] MEDS: Senokot S 8.6-50 MG TAB PO SCH ×2 (08:36→20:25)
[2022-06-12] MEDS: Polyethylene Glycol 3350 17 GM Packet PO SCH ×2 (08:36→20:26)
[2022-06-12] MEDS: Multivit, Therapeutic 1 TAB PO SCH (08:36)
[2022-06-12] MEDS ORDERED: traMADol HCl 50 MG TAB PO PRN ×2 (12:15)
[2022-06-12] MEDS: HYDROcodone/Acetaminophen 10/325 mg Tablet PO PRN ×2 (13:04→20:26)
[2022-06-12] MEDS: Atorvastatin Calcium 20 MG TAB PO SCH (20:25)
[2022-06-12] MEDS: Montelukast Sodium 10 mg Tablet PO SCH (20:25)
[2022-06-12] MEDS: Melatonin 3 MG TAB PO SCH (20:25)
[2022-06-12] MEDS: Allopurinol 100 MG TAB PO SCH (20:26)
[2022-06-13] MEDS: HYDROcodone/Acetaminophen 10/325 mg Tablet PO PRN ×3 (00:24→16:45)
[2022-06-13] MEDS: Acetaminophen 500 MG TAB PO SCH ×4 (00:27→16:53)
[2022-06-13 04:05] LABS: #Eosinphils 0.3 thou/uL (0.0-0.7); #Lymphocytes 1.6 thou/uL (1.20-3.40); #Monocytes 1.3 thou/uL (0.11-0.59); #Neutrophils 14.4 thou/uL (1.40-6.50); %Basophils 0.1 % (0.0-1.0); %Lymphocytes 9.2 % (21.0-51.0); %Monocytes 7.1 % (0.0-10.0); %Neutrophils 81.5 % (42.0-75.0); Hemoglobin 11.6 g/dL (14.0-18.0); Mean Corpuscular HGB CONC 33.2 g/dL (32.0-36.0); Mean Corpuscular Hemoglobin 31.8 pg (27.0-31.0); Mean Corpuscular Volume 95.9 fL (78.0-98.0); Mean Platelet Volume 5.8 fL (7.4-10.4); Platelet Count 303 thou/uL (130-400); RBC Distribution Width 11.8 % (11.5-14.5); Red Blood Cell (RBC) Count 3.65 mill/uL (4.70-6.10); White Blood Cell (WBC) Count 17.7 thou/uL (4.8-10.8)
[2022-06-13 04:24] LABS: Anion Gap 14 mmol/L (10-20); BUN (Urea Nitrogen) 21 mg/dL (8.4-25.7); Calc. Creatinine Clearance 92 mL/min (70-130); Calcium 8.5 mg/dL (7.8-10.44); Carbon Dioxide 33 mmol/L (23-31); Chloride 92 mmol/L (98-107); Estimated GFR 91; Glucose 114 mg/dL (83-110); Potassium 3.6 mmol/L (3.5-5.1); Sodium 135 mmol/L (136-145)
[2022-06-13] MEDS: Potassium Chloride 10 MEQ TAB PO SCH ×2 (07:34→16:45)
[2022-06-13] MEDS: Amlodipine 5 MG TAB PO SCH (07:34)
[2022-06-13] MEDS: predniSONE 5 MG TAB PO SCH (07:35)
[2022-06-13] MEDS: Furosemide 20 MG TAB PO SCH ×2 (07:35→16:44)
[2022-06-13] MEDS: Multivit, Therapeutic 1 TAB PO SCH (07:35)
[2022-06-13] MEDS: Senokot S 8.6-50 MG TAB PO SCH ×2 (07:35→20:39)
[2022-06-13] MEDS: Polyethylene Glycol 3350 17 GM Packet PO SCH ×2 (07:36→20:39)
[2022-06-13] MEDS: Mometasone 200 MCG/Formoterol 5 MCG 120 PUFF INHALER INH SCH ×2 (07:58→20:59)
[2022-06-13 10:34] VITALS: BP 124/80
[2022-06-13] MEDS: Allopurinol 100 MG TAB PO SCH (20:39)
[2022-06-13] MEDS: Montelukast Sodium 10 mg Tablet PO SCH (20:39)
[2022-06-13] MEDS: Melatonin 3 MG TAB PO SCH (20:39)
[2022-06-13] MEDS: Atorvastatin Calcium 20 MG TAB PO SCH (20:39)
[2022-06-14] MEDS: Acetaminophen 500 MG TAB PO SCH ×2 (00:25→06:45)
[2022-06-14] MEDS: HYDROcodone/Acetaminophen 10/325 mg Tablet PO PRN ×2 (00:27→09:09)
[2022-06-14 04:10] LABS: #Basophils 0.1 thou/uL (0.0-0.2); #Eosinphils 0.4 thou/uL (0.0-0.7); #Lymphocytes 1.4 thou/uL (1.20-3.40); #Monocytes 1.2 thou/uL (0.11-0.59); #Neutrophils 13.4 thou/uL (1.40-6.50); %Basophils 0.3 % (0.0-1.0); %Eosinophils 2.5 % (0.0-10.0); %Lymphocytes 8.7 % (21.0-51.0); %Monocytes 7.2 % (0.0-10.0); %Neutrophils 81.2 % (42.0-75.0); Hemoglobin 12.3 g/dL (14.0-18.0); Mean Corpuscular HGB CONC 32.4 g/dL (32.0-36.0); Mean Corpuscular Hemoglobin 31.1 pg (27.0-31.0); Mean Corpuscular Volume 95.8 fL (78.0-98.0); Platelet Count 304 thou/uL (130-400); RBC Distribution Width 11.8 % (11.5-14.5); Red Blood Cell (RBC) Count 3.96 mill/uL (4.70-6.10); White Blood Cell (WBC) Count 16.5 thou/uL (4.8-10.8)
[2022-06-14 04:31] LABS: Anion Gap 16 mmol/L (10-20); BUN (Urea Nitrogen) 20 mg/dL (8.4-25.7); Calc. Creatinine Clearance 100 mL/min (70-130); Calcium 8.6 mg/dL (7.8-10.44); Carbon Dioxide 30 mmol/L (23-31); Chloride 91 mmol/L (98-107); Estimated GFR 93; Glucose 106 mg/dL (83-110); Potassium 3.7 mmol/L (3.5-5.1); Sodium 133 mmol/L (136-145)
[2022-06-14] MEDS: Mometasone 200 MCG/Formoterol 5 MCG 120 PUFF INHALER INH SCH (05:29)
[2022-06-14 05:35] VITALS: TEMP 97.6
[2022-06-14] MEDS: Senokot S 8.6-50 MG TAB PO SCH (09:08)
[2022-06-14] MEDS: Multivit, Therapeutic 1 TAB PO SCH (09:08)
[2022-06-14] MEDS: Furosemide 20 MG TAB PO SCH (09:08)
[2022-06-14] MEDS: Potassium Chloride 10 MEQ TAB PO SCH (09:08)
[2022-06-14] MEDS: predniSONE 5 MG TAB PO SCH (09:09)
[2022-06-14] MEDS: Amlodipine 5 MG TAB PO SCH (09:09)
[2022-06-14] MEDS: Polyethylene Glycol 3350 17 GM Packet PO SCH (09:10)
== END 2022-06-14 11:40 | disposition home or self-care (01) | DRG 163 ==
LOC: ERS 15:02 → ERHOLD 17:01 → 2NO 20:02 → CCU 05-30 16:20 → IMCU/EMU 06-02 21:52
PROVIDERS: ADMIT Internal Medicine; ATTEND Internal Medicine
PROC: 0W9B30Z Drainage of Left Pleural Cavity with Drainage Device, Percutaneous Approach (ICD-10-PCS; 2022-05-22)
PROC: 0BBG3ZX Excision of Left Upper Lung Lobe, Percutaneous Approach, Diagnostic (ICD-10-PCS; 2022-05-23)
PROC: 5A09557 Assistance with Respiratory Ventilation, Greater than 96 Consecutive Hours, Continuous Positive Airway Pressure (ICD-10-PCS; 2022-05-23)
PROC: 0BBG3ZX Excision of Left Upper Lung Lobe, Percutaneous Approach, Diagnostic (ICD-10-PCS; 2022-05-26)
PROC: 0BTG0ZZ Resection of Left Upper Lung Lobe, Open Approach (ICD-10-PCS; principal; 2022-05-30)
PROC: 0BBP4ZX Excision of Left Pleura, Percutaneous Endoscopic Approach, Diagnostic (ICD-10-PCS; 2022-05-30)
PROC: 0BQ Respiratory System, Repair (ICD-10-PCS; 2022-06-07)
PROC: 0BJ08ZZ Inspection of Tracheobronchial Tree, Via Natural or Artificial Opening Endoscopic (ICD-10-PCS; 2022-06-07)
PROC: 0W9B00Z Drainage of Left Pleural Cavity with Drainage Device, Open Approach (ICD-10-PCS; 2022-06-07)
DX: C34.12 Malignant neoplasm of upper lobe, left bronchus or lung (principal); J96.01 Acute respiratory failure with hypoxia; J93.83 Other pneumothorax; J95.812 Postprocedural air leak; K56.609 Unspecified intestinal obstruction, unspecified as to partial versus complete obstruction; C78.2 Secondary malignant neoplasm of pleura; K56.7 Ileus, unspecified; C78.7 Secondary malignant neoplasm of liver and intrahepatic bile duct; C79.31 Secondary malignant neoplasm of brain; Z20.822 Contact with and (suspected) exposure to COVID-19; J84.10 Pulmonary fibrosis, unspecified; M19.90 Unspecified osteoarthritis, unspecified site; I10 Essential (primary) hypertension; G47.33 Obstructive sleep apnea (adult) (pediatric); Z53.8 Procedure and treatment not carried out for other reasons; M10.9 Gout, unspecified; J98.2 Interstitial emphysema; R91.1 Solitary pulmonary nodule; T40.2X5A Adverse effect of other opioids, initial encounter; K59.03 Drug induced constipation; D64.9 Anemia, unspecified; Y83.8 Other surgical procedures as the cause of abnormal reaction of the patient, or of later complication, without mention of misadventure at the time of the procedure; Z80.1 Family history of malignant neoplasm of trachea, bronchus and lung; Z86.16 Personal history of COVID-19; Z87.891 Personal history of nicotine dependence; Z88.6 Allergy status to analgesic agent
CPT/HCPCS: 32408; 36415; 70450; 70553; 71045; 71250; 74018; 74177; 77012; 80048; 80053; 83516; 83735; 84100; 85025; 85610; 85652; 85730; 86037; 86850; 86900; 86901; 87040; 87070; 87102; 87116; 87205; 87206; 88305; 88309; 88331; 88333; 88334; 88341; 88342; 93005; 94010; 94640; 94726; 94729; 94760; A4649; C9113; J0171; J0690; J0696; J1100; J1170; J1650; J2250; J2405; J2704; J2765; J3010; J3490; J7050; J7512; J7620; S0020; U0002; U0003; U0005